=== PATIENT | male | born 1990 | race Caucasian/White ===

== ENCOUNTER 2017-01-16 00:18 | Emergency (ER) | payer SELFPAY ==
[~2017-01-16] VITALS: Ht 190.5 cm; Wt 110.0 kg
[~2017-01-16 00:18] MED LIST: PENI500T PO
[2017-01-16 00:21] VITALS: BP 113/64; PULSE 127; RESP 20; TEMP 100.1; O2SAT 94
--- NOTE | 2017-01-16 00:59 | PD ---
HPI Chief Complaint: Alcohol/Drug Intoxication Time Seen by Provider: 00:58 Travel History International Travel<30 days: No Contact w/Intl Traveler<30days: No Traveled to known affect area: No History of Present Illness HPI 26-year-old male was brought into the emergency room by his friends for shooting Dilaudid and then having a seizure-like activity. As per the friends he has not used for 6 months and this was a first-time again. Patient was quite somnolent but able to answer some questions with slurred speech. Vital signs had temperature of 100.1 and tachycardia. However as I was seeing him on the monitor his heart rate was in the low 100s and repeat oral temperature was 99.5. Patient was not a reliable historian and the friends could not tell more than this. [facility] Past Medical History Narrative Medical List of his past medical, surgical, social and family history is reviewed from the nursing note. Cancer: No Cardiovascular Problems: No Diabetes: No Diminished Hearing: No Gastrointestinal Disorders: No Genitourinary: No Hepatitis: No Hiatal Hernia: No Hypertension: No Musculoskeletal: Yes (CHRONIC HAND PAIN AFTER HAVING SURGERY) Psychiatric: No Respiratory: No Immunizations Current: Yes Thyroid Disease: No PNEUMOCCOCAL Vaccine (Year): 2 Past Surgical History Other Surgery: Yes (ORIF right hand) Social History Alcohol Use: Yes (OCCASIONALLY) Tobacco Use: Yes (1 PPD) Substance Use: Yes (THC) Allergies-Medications (Allergen,Severity, Reaction): Coded Allergies: No Known Allergies (Verified Allergy, Unknown, 01/16/17) Comments No known drug allergies. Reported Meds & Prescriptions Reported Meds & Active Scripts Active Pen-Vee K (Penicillin V Potassium) 500 Mg Tab 500 Mg PO Q6 10 Days Narrative Medication List of his home medications reviewed from the nursing note. Review of Systems ROS Limitations: Altered Mental Status Except as stated in HPI: all other systems reviewed are Neg Physical Exam Exam Limitations: Altered Mental Status Narrative GENERAL: Somnolent, slurred speech SKIN: Focused skin assessment warm/dry. HEAD: Atraumatic. Normocephalic. EYES: Pupils equal and round. No scleral icterus. No injection or drainage. ENT: No nasal bleeding or discharge. Mucous membranes pink and moist. NECK: Trachea midline. No JVD. CARDIOVASCULAR: Regular rate and rhythm. No murmur appreciated. RESPIRATORY: No accessory muscle use. Clear to auscultation. Breath sounds equal bilaterally. GASTROINTESTINAL: Abdomen soft, non-tender, nondistended. Hepatic and splenic margins not palpable. MUSCULOSKELETAL: No obvious deformities. No clubbing. No cyanosis. No edema. NEUROLOGICAL: GCS of 13. No obvious cranial nerve deficits. Motor grossly within normal limits. Slurred speech. PSYCHIATRIC: Appropriate mood and affect; insight and judgment normal. Data Data Last Documented VS Orders Orders Sepsis Workup Initiated (01/16/17 ) Complete Blood Count With Diff (01/16/17 01:05) Comprehensive Metabolic Panel (01/16/17 01:05) Lactic Acid Sepsis Protocol (01/16/17 01:05) Blood Culture (01/16/17 01:05) Chest, Single Ap (01/16/17 01:05) Blood Glucose (01/16/17 01:05) Ecg Monitoring (01/16/17 01:05) Iv Access Insert/Monitor (01/16/17 01:05) Oximetry (01/16/17 01:05) Oxygen Administration (01/16/17 01:05) Sodium Chlor 0.9% 1000 Ml Inj (Ns 1000 M (01/16/17 01:05) Sodium Chlor 0.9% 1000 Ml Inj (Ns 1000 M (01/16/17 01:05) Sodium Chlor 0.9% 1000 Ml Inj (Ns 1000 M (01/16/17 01:05) Sodium Chlor 0.9% 1000 Ml Inj (Ns 1000 M (01/16/17 01:05) Naloxone Inj (Narcan Inj) (01/16/17 02:45) Naloxone Inj (Narcan Inj) (01/16/17 02:45) Ed Discharge Order (01/16/17 02:50) Labs Laboratory Tests Test 01/16/17 01:10 White Blood Count 6.8 TH/MM3 Red Blood Count 4.36 MIL/MM3 Hemoglobin 14.0 GM/DL Hematocrit 40.4 % Mean Corpuscular Volume 92.7 FL Mean Corpuscular Hemoglobin 32.0 PG Mean Corpuscular Hemoglobin Concent 34.6 % Red Cell Distribution Width 12.4 % Platelet Count 212 TH/MM3 Mean Platelet Volume 8.1 FL Neutrophils (%) (Auto) 87.2 % Lymphocytes (%) (Auto) 7.0 % Monocytes (%) (Auto) 4.5 % Eosinophils (%) (Auto) 0.8 % Basophils (%) (Auto) 0.5 % Neutrophils # (Auto) 5.9 TH/MM3 Lymphocytes # (Auto) 0.5 TH/MM3 Monocytes # (Auto) 0.3 TH/MM3 Eosinophils # (Auto) 0.1 TH/MM3 Basophils # (Auto) 0.0 TH/MM3 CBC Comment DIFF FINAL Differential Comment Blood Urea Nitrogen 21 MG/DL Creatinine 1.06 MG/DL Random Glucose 140 MG/DL Total Protein 7.0 GM/DL Albumin 4.0 GM/DL Calcium Level 8.1 MG/DL Alkaline Phosphatase 67 U/L Aspartate Amino Transf (AST/SGOT) 39 U/L Alanine Aminotransferase (ALT/SGPT) 51 U/L Total Bilirubin 0.8 MG/DL Sodium Level 138 MEQ/L Potassium Level 3.5 MEQ/L Chloride Level 102 MEQ/L Carbon Dioxide Level 26.2 MEQ/L Anion Gap 10 MEQ/L Estimat Glomerular Filtration Rate 83 ML/MIN Lactic Acid Level 1.7 mmol/L MDM Medical Decision Making Medical Screen Exam Complete: Yes Emergency Medical Condition: Yes Medical Record Reviewed: Yes Differential Diagnosis IV drug abuse, opiate abuse, AMS, sepsis, pneumonia Narrative Course 2:40 AM patient was still very groggy. Blood test results were back and they were within acceptable limits. Chest x-ray was negative. Patient was somewhat dehydrated and he had received 2 L of fluid by now. Patient did not give a urine sample and refused to be catheterized. At this point I decided to give him Narcan to reverse his opiate effect. Patient ended up receiving 4 mg of Narcan IV. This woke him up significantly where he was able to have a conversation. Told me that he crushed 8 mg pill off Dilaudid and shot it. He had been clean for 6 months. He told the name of his friend who brought him in so that they can be called to take him home. My opinion patient's presentation is all from opiate overdose. Being clean for 6 months and then using a heavy dose of Narcan made him respiratory and cardiovascular depressed. I'm comfortable discharging him home at this point. Procedures EKG Prior to Arrival: No Diagnosis Primary Impression: IV drug abuse Additional Impression: Dehydration Additional Instructions: Illicit drugs are harmful for health. Please check in to [facility] if you have addiction issues. Med/Other Pt SpecificInfo: No Change to Meds Disposition: 01 DISCHARGE HOME Condition: Stable Fred Pizarro MD Jan 16, 2017 00:59
[2017-01-16] MEDS ORDERED: SODIUM CHLOR 0.9% 1000 ML INJ 1,000 ML IV ONE ×3 (01:05)
[2017-01-16] MEDS ORDERED: SODIUM CHLOR 0.9% 1000 ML INJ 300 ML IV ONE (01:05)
[2017-01-16 01:28] LABS: AUTOMATED NEUTROPHIL # 5.9 TH/MM3 (1.8-7.7); BASOPHIL % 0.5 % (0.0-2.0); EOSINOPHIL # 0.1 TH/MM3 (0-0.4); EOSINOPHIL % 0.8 % (0.0-4.0); HEMATOCRIT 40.4 % (39.0-51.0); HEMO FLAGS DIFF FINAL; LYMPHOCYTE # 0.5 TH/MM3 (1.0-4.8); MEAN CELL VOLUME 92.7 FL (80.0-100.0); MEAN CORPUSCULAR HGB CONC 34.6 % (32.0-36.0); MONO % 4.5 % (0.0-8.0); NEUT % 87.2 % (16.0-70.0); PLATELET COUNT 212 TH/MM3 (150-450); RED BLOOD COUNT 4.36 MIL/MM3 (4.50-5.90); RED CELL DISTRIBUTION WIDTH 12.4 % (11.6-17.2); WHITE BLOOD COUNT 6.8 TH/MM3 (4.0-11.0)
--- NOTE | 2017-01-16 01:31 | RADRPT ---
EXAM DATE/TIME: 01/16/2017 01:17 [facility] COMPARISON: No previous studies available for comparison. INDICATIONS : Vomiting, short of breath. MEDICAL HISTORY : None. SURGICAL HISTORY : None. ENCOUNTER: Initial ACUITY: 1 day PAIN SCORE: 0/10 LOCATION: Bilateral chest FINDINGS: A single view of the chest demonstrates the lungs to be symmetrically aerated without evidence of mas s, infiltrate or effusion. The cardiomediastinal contours are unremarkable. Osseous structures are intact. CONCLUSION: Normal examination. Nick Wolfe MD on January 16, 2017 at 1:30 Board Certified Radiologist. This report was verified electronically.
[2017-01-16 01:51] LABS: ALKALINE PHOSPHATASE 67 U/L (45-117); TOTAL BILIRUBIN ADULT 0.8 MG/DL (0.2-1.0)
[2017-01-16 02:13] LABS: ALT (GPT) 51 U/L (12-78); ANION GAP 10 MEQ/L (5-15); AST (GOT) 39 U/L (15-37); BICARBONATE 26.2 MEQ/L (21.0-32.0); BLOOD UREA NITROGEN 21 MG/DL (7-18); CHLORIDE 102 MEQ/L (98-107); GLOMERULAR FILTRATION RATE 83 ML/MIN (>89); POTASSIUM 3.5 MEQ/L (3.5-5.1); SODIUM (NA) 138 MEQ/L (136-145)
[2017-01-16 02:45] VITALS: BP 100/60; PULSE 98; RESP 15; TEMP 99; O2SAT 98
[2017-01-16] MEDS ORDERED: NALOXONE HCL 2 MG/2 ML VIAL IV PUSH ONE ×2 (02:45)
[2017-01-16 03:10] VITALS: BP 100/60; PULSE 86; RESP 16; O2SAT 98
== END 2017-01-16 03:30 | disposition home or self-care (01) ==
LOC: NEPC 00:18
DX: F19.10 Other psychoactive substance abuse, uncomplicated (principal); E86.0 Dehydration; F17.200 Nicotine dependence, unspecified, uncomplicated
CPT/HCPCS: 71010; 80053; 83605; 85025; 87040; 96361; 96374; 99284; J2310; J7030

== ENCOUNTER 2017-02-13 11:07 | Emergency (ER) | payer SELFPAY ==
[2017-02-13 11:11] VITALS: BP 123/76; PULSE 90; RESP 16; TEMP 97.4; O2SAT 98
[2017-02-13] MEDS ORDERED: SODIUM CHLOR 0.9% 1000 ML INJ 1,000 ML IV SCH (11:19)
[2017-02-13 11:30] VITALS: O2SAT 94
[2017-02-13] MEDS ORDERED: SODIUM CHLORIDE 0.9% FLUSH 10 ML FLUSH IV FLUSH PRN (11:30)
[2017-02-13 11:31] LABS: BASOPHIL % 0.5 % (0.0-2.0); EOSINOPHIL # 0.1 TH/MM3 (0-0.4); EOSINOPHIL % 3.7 % (0.0-4.0); HEMATOCRIT 39.7 % (39.0-51.0); HEMO FLAGS DIFF FINAL; LYMPH % 13.8 % (9.0-44.0); LYMPHOCYTE # 0.5 TH/MM3 (1.0-4.8); MEAN CELL VOLUME 92.8 FL (80.0-100.0); MEAN CORPUSCULAR HEMOGLOBIN 31.5 PG (27.0-34.0); MEAN CORPUSCULAR HGB CONC 33.9 % (32.0-36.0); MONO % 5.5 % (0.0-8.0); NEUT % 76.5 % (16.0-70.0); PLATELET COUNT 212 TH/MM3 (150-450); RED BLOOD COUNT 4.28 MIL/MM3 (4.50-5.90); RED CELL DISTRIBUTION WIDTH 12.4 % (11.6-17.2)
--- NOTE | 2017-02-13 11:34 | PD ---
HPI Chief Complaint: Altered Mental Status Time Seen by Provider: 11:17 Travel History International Travel<30 days: No Contact w/Intl Traveler<30days: No Traveled to known affect area: No History of Present Illness HPI The patient is a 26-year-old male who presents to the emergency department via EMS after he was found unconscious and unresponsive at [facility]. The patient does have a history of IV drug abuse and is currently taking Suboxone. The patient remembers going to [facility] to get cheeseburgers, however, does not remember how he got to the floor. He does complain of a mild headache. He states he may have a history of remote seizures but does not currently take any antibiotics. He states he does not think he took his Suboxone this morning and denies any illicit drug use today. He denies any chest pain, shortness breath, nausea, vomiting, or abdominal pain. He is a somewhat limited and reluctant historian. PFSH Past Medical History Cancer: No Cardiovascular Problems: No Diabetes: No Diminished Hearing: No Gastrointestinal Disorders: No Genitourinary: No Hepatitis: No Hiatal Hernia: No Hypertension: No Musculoskeletal: Yes (CHRONIC HAND PAIN AFTER HAVING SURGERY) Psychiatric: No Respiratory: No Immunizations Current: Yes Thyroid Disease: No PNEUMOCCOCAL Vaccine (Year): 2 Past Surgical History Other Surgery: Yes (ORIF right hand) Social History Alcohol Use: Yes (OCCASIONALLY) Tobacco Use: Yes (1 PPD) Substance Use: Yes (PT UNSURE WHEN LAST USED) Allergies-Medications (Allergen,Severity, Reaction): Coded Allergies: No Known Allergies (Verified Allergy, Unknown, 02/13/17) Reported Meds & Prescriptions Reported Meds & Active Scripts Active Pen-Vee K (Penicillin V Potassium) 500 Mg Tab 500 Mg PO Q6 10 Days Review of Systems Except as stated in HPI: all other systems reviewed are Neg General / Constitutional: No: Fever Eyes: No: Blurred Vision, Visual changes HENT: Positive: Headaches, No: Neck Pain Cardiovascular: No: Chest Pain or Discomfort, Palpitations, Tachycardia, Diaphoresis Respiratory: No: Shortness of Breath Gastrointestinal: No: Nausea, Vomiting, Abdominal Pain Musculoskeletal: No: Weakness Neurologic: Positive: Change in Mentation, Seizures (possible history of seizures) Psychiatric: Positive: Substance Abuse (history of IV drug abuse) Physical Exam Narrative GENERAL: Awake, alert, 26-year-old male appears his stated age and is in no acute respiratory distress. SKIN: Focused skin assessment warm/dry. HEAD: Atraumatic. Normocephalic. EYES: Pupils equal and round. Pupils are 4 mm bilateral and reactive. Slight disconjugate gaze a left eye laterally. ENT: No nasal bleeding or discharge. Mucous membranes pink and moist. NECK: Trachea midline. No JVD. CARDIOVASCULAR: Regular rate and rhythm. No murmur appreciated. RESPIRATORY: No accessory muscle use. Clear to auscultation. Breath sounds equal bilaterally. GASTROINTESTINAL: Abdomen soft, non-tender, nondistended. MUSCULOSKELETAL: No obvious deformities. No clubbing. No cyanosis. No edema. NEUROLOGICAL: Awake and alert. No obvious cranial nerve deficits. Motor grossly within normal limits. Normal speech. Nonfocal. Oriented to person and [facility] but did not know the current month or year. PSYCHIATRIC: Appropriate mood and affect; insight and judgment normal. Data Data Last Documented VS Vital Signs Date Time Temp Pulse Resp B/P (MAP) Pulse Ox O2 Delivery O2 Flow Rate FiO2 02/13/17 11:30 94 Room Air 02/13/17 11:11 97.4 90 16 123/76 (92) Orders Orders Electrocardiogram (02/13/17 11:19) Complete Blood Count With Diff (02/13/17 11:19) Comprehensive Metabolic Panel (02/13/17 11:19) Creatine Kinase (Cpk) (02/13/17 11:19) Ct Brain W/O Iv Contrast(Rout) (02/13/17 11:19) Blood Glucose (02/13/17 11:19) Ecg Monitoring (02/13/17 11:19) Iv Access Insert/Monitor (02/13/17 11:19) Oximetry (02/13/17 11:19) Sodium Chloride 0.9% Flush (Ns Flush) (02/13/17 11:30) Sodium Chlor 0.9% 1000 Ml Inj (Ns 1000 M (02/13/17 11:19) Alcohol (Ethanol) (02/13/17 11:19) Lactic Acid (02/13/17 11:19) Drug Screen, Random Urine (02/13/17 13:19) Ed Discharge Order (02/13/17 13:44) Labs Laboratory Tests Test 02/13/17 11:22 White Blood Count 4.0 TH/MM3 Red Blood Count 4.28 MIL/MM3 Hemoglobin 13.5 GM/DL Hematocrit 39.7 % Mean Corpuscular Volume 92.8 FL Mean Corpuscular Hemoglobin 31.5 PG Mean Corpuscular Hemoglobin Concent 33.9 % Red Cell Distribution Width 12.4 % Platelet Count 212 TH/MM3 Mean Platelet Volume 7.6 FL Neutrophils (%) (Auto) 76.5 % Lymphocytes (%) (Auto) 13.8 % Monocytes (%) (Auto) 5.5 % Eosinophils (%) (Auto) 3.7 % Basophils (%) (Auto) 0.5 % Neutrophils # (Auto) 3.0 TH/MM3 Lymphocytes # (Auto) 0.5 TH/MM3 Monocytes # (Auto) 0.2 TH/MM3 Eosinophils # (Auto) 0.1 TH/MM3 Basophils # (Auto) 0.0 TH/MM3 CBC Comment DIFF FINAL Differential Comment Blood Urea Nitrogen 18 MG/DL Creatinine 1.01 MG/DL Random Glucose 238 MG/DL Total Protein 7.1 GM/DL Albumin 3.8 GM/DL Calcium Level 8.3 MG/DL Alkaline Phosphatase 60 U/L Aspartate Amino Transf (AST/SGOT) 27 U/L Alanine Aminotransferase (ALT/SGPT) 35 U/L Total Bilirubin 0.4 MG/DL Sodium Level 136 MEQ/L Potassium Level 3.7 MEQ/L Chloride Level 103 MEQ/L Carbon Dioxide Level 25.6 MEQ/L Anion Gap 7 MEQ/L Estimat Glomerular Filtration Rate 88 ML/MIN Lactic Acid Level 1.3 mmol/L Total Creatine Kinase 296 U/L Ethyl Alcohol Level LESS THAN 3 MG/DL MDM Medical Decision Making Medical Screen Exam Complete: Yes Emergency Medical Condition: Yes Medical Record Reviewed: Yes Interpretation(s) EKG reveals normal sinus rhythm with a rate of 69. Inverted T-wave noted in lead 3. Last Impressions Head CT 02/13/17 1119 Signed Impressions: Service Date/Time: Monday, February 13, 2017 11:25 - CONCLUSION: Normal examination. Rosendo Moreno MD Laboratory Tests Test 02/13/17 11:22 White Blood Count 4.0 TH/MM3 Red Blood Count 4.28 MIL/MM3 Hemoglobin 13.5 GM/DL Hematocrit 39.7 % Mean Corpuscular Volume 92.8 FL Mean Corpuscular Hemoglobin 31.5 PG Mean Corpuscular Hemoglobin Concent 33.9 % Red Cell Distribution Width 12.4 % Platelet Count 212 TH/MM3 Mean Platelet Volume 7.6 FL Neutrophils (%) (Auto) 76.5 % Lymphocytes (%) (Auto) 13.8 % Monocytes (%) (Auto) 5.5 % Eosinophils (%) (Auto) 3.7 % Basophils (%) (Auto) 0.5 % Neutrophils # (Auto) 3.0 TH/MM3 Lymphocytes # (Auto) 0.5 TH/MM3 Monocytes # (Auto) 0.2 TH/MM3 Eosinophils # (Auto) 0.1 TH/MM3 Basophils # (Auto) 0.0 TH/MM3 CBC Comment DIFF FINAL Differential Comment Blood Urea Nitrogen 18 MG/DL Creatinine 1.01 MG/DL Random Glucose 238 MG/DL Total Protein 7.1 GM/DL Albumin 3.8 GM/DL Calcium Level 8.3 MG/DL Alkaline Phosphatase 60 U/L Aspartate Amino Transf (AST/SGOT) 27 U/L Alanine Aminotransferase (ALT/SGPT) 35 U/L Total Bilirubin 0.4 MG/DL Sodium Level 136 MEQ/L Potassium Level 3.7 MEQ/L Chloride Level 103 MEQ/L Carbon Dioxide Level 25.6 MEQ/L Anion Gap 7 MEQ/L Estimat Glomerular Filtration Rate 88 ML/MIN Lactic Acid Level 1.3 mmol/L Total Creatine Kinase 296 U/L Ethyl Alcohol Level LESS THAN 3 MG/DL Differential Diagnosis Differential diagnosis includes drug ingestion, illicit drug use, closed head injury, intracranial hemorrhage, hyponatremia, seizure with postictal state. Narrative Course IV was established, labs are drawn and sent, and the patient was placed on cardiac telemetry monitoring and continuous pulse oximetry monitoring. Noncontrast CT the brain was obtained. The patient was administered 1 L of IV fluids. CT the brain was negative. Glucose was slightly elevated, however, sodium was normal. Lactic acid was unremarkable, doubt seizure. The patient was monitored in the emergency department. The patient was reevaluated at 1:40 PM. The patient is now awake, alert, oriented 5. Telemetry monitoring did not reveal any arrhythmias. The patient would prefer to go home and follow-up as an outpatient. Diagnosis Primary Impression: Altered mental status Qualified Codes: R40.4 - Transient alteration of awareness Patient Instructions: General Instructions Additional Instructions: Please provide a patient a copy of his CT results and lab results at discharge. Follow-up with your primary physician. Return if symptoms worsen or progress. Disposition: 01 DISCHARGE HOME Condition: Stable Kale Quiroz MD Feb 13, 2017 11:34
--- NOTE | 2017-02-13 11:46 | RADRPT ---
EXAM DATE/TIME: 02/13/2017 11:25 [facility] COMPARISON: No previous studies available for comparison. INDICATIONS : AMS. RADIATION DOSE: 69.22 CTDIvol (mGy) MEDICAL HISTORY : None SURGICAL HISTORY : None. ENCOUNTER: Initial ACUITY: 1 day PAIN SCALE: 2/10 LOCATION: Bilateral cranial TECHNIQUE: Multiple contiguous axial images were obtained of the head. Using automated exposure control and adj ustment of the mA and/or kV according to patient size, radiation dose was kept as low as reasonably a chievable to obtain optimal diagnostic quality images. DICOM format image data is available electro nically for review and comparison. FINDINGS: CEREBRUM: The ventricles are normal for age. No evidence of midline shift, mass lesion, hemorrhage or acute in farction. No extra-axial fluid collections are seen. POSTERIOR FOSSA: The cerebellum and brainstem are intact. The 4th ventricle is midline. The cerebellopontine angle i s unremarkable. EXTRACRANIAL: The visualized portion of the orbits is intact. SKULL: The calvaria is intact. No evidence of skull fracture. CONCLUSION: Normal examination. Rosendo Moreno MD on February 13, 2017 at 11:43 Board Certified Radiologist. This report was verified electronically.
[2017-02-13 11:51] LABS: ALT (GPT) 35 U/L (12-78); ANION GAP 7 MEQ/L (5-15); AST (GOT) 27 U/L (15-37); BICARBONATE 25.6 MEQ/L (21.0-32.0); BLOOD UREA NITROGEN 18 MG/DL (7-18); CHLORIDE 103 MEQ/L (98-107); GLOMERULAR FILTRATION RATE 88 ML/MIN (>89); POTASSIUM 3.7 MEQ/L (3.5-5.1); SODIUM (NA) 136 MEQ/L (136-145)
[2017-02-13 11:52] LABS: TOTAL BILIRUBIN ADULT 0.4 MG/DL (0.2-1.0)
[2017-02-13 11:53] LABS: ALKALINE PHOSPHATASE 60 U/L (45-117); CREATINE KINASE 296 U/L (39-308)
[2017-02-13 11:54] LABS: ALCOHOL LESS THAN 3 MG/DL (0-5)
[2017-02-13 14:05] VITALS: BP 112/66
[2017-02-13] MEDS ORDERED: ONDANSETRON ODT 4 MG TAB PO ONE (14:15)
--- NOTE | 2017-02-13 14:41 | EKG ---
Date Performed: 02/13/2017 Time Performed: 11:43:46 PTAGE: 26 years EKG: Sinus rhythm NORMAL ECG NO PREVIOUS TRACING DOCTOR: Nick Montano Interpretating Date/Time 02/13/2017 14:41:00
== END 2017-02-13 14:07 | disposition home or self-care (01) ==
LOC: NEPC 11:07
DX: R41.82 Altered mental status, unspecified (principal); R51 Headache; F15.11 Other stimulant abuse, in remission; F17.200 Nicotine dependence, unspecified, uncomplicated
CPT/HCPCS: 70450; 80053; 80307; 82550; 83605; 85025; 93005; 96360; 99285; J7030

== ENCOUNTER 2017-02-15 20:06 | Emergency (ER) | payer OTHER ==
[~2017-02-15] VITALS: Ht 188 cm; Wt 114.0 kg
[2017-02-15 20:13] VITALS: BP 139/87; PULSE 83; RESP 24; TEMP 97.8; O2SAT 99
[2017-02-15] MEDS ORDERED: SODIUM CHLORIDE 0.9% FLUSH 10 ML FLUSH IVF PRN (20:15)
[2017-02-15] MEDS ORDERED: DIPHTH/TETANUS/ACEL PERTUSSIS (BOOSTER) 0.5 ML VIAL/PFS IM ONE (20:18)
[2017-02-15] MEDS ORDERED: ceFAZolin 2 GM PREMIX 50 ML ONE (20:18)
[2017-02-15] MEDS ORDERED: ceFAZolin 2 GM PREMIX 50 ML IV ONE (20:30)
[2017-02-15] MEDS ORDERED: TETANUS/DIPHTHERIA TOXOID ADULT 0.5 ML VIAL IM ONE (20:30)
[2017-02-15] MEDS ORDERED: SODIUM CHLOR 0.9% 1000 ML INJ 1,000 ML IV ONE (20:30)
[2017-02-15] MEDS ORDERED: MORPHINE SULFATE 4 MG/ML INJ IV PUSH ONE (20:30)
[2017-02-15 20:33] LABS: AUTOMATED NEUTROPHIL # 4.8 TH/MM3 (1.8-7.7); BASOPHIL # 0.1 TH/MM3 (0-0.2); EOSINOPHIL # 0.2 TH/MM3 (0-0.4); EOSINOPHIL % 3.2 % (0.0-4.0); HEMATOCRIT 39.7 % (39.0-51.0); HEMOGLOBIN 13.6 GM/DL (13.0-17.0); LYMPH % 16.8 % (9.0-44.0); LYMPHOCYTE # 1.1 TH/MM3 (1.0-4.8); MEAN CELL VOLUME 92.2 FL (80.0-100.0); MEAN CORPUSCULAR HEMOGLOBIN 31.5 PG (27.0-34.0); MEAN CORPUSCULAR HGB CONC 34.2 % (32.0-36.0); MEAN PLATELET VOLUME 7.6 FL (7.0-11.0); MONO % 6.7 % (0.0-8.0); MONOCYTE # 0.4 TH/MM3 (0-0.9); NEUT % 72.3 % (16.0-70.0); PLATELET COUNT 237 TH/MM3 (150-450); RED BLOOD COUNT 4.31 MIL/MM3 (4.50-5.90); WHITE BLOOD COUNT 6.6 TH/MM3 (4.0-11.0)
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
[2017-02-15 20:45] LABS: PROTHROMBIN TIME - PATIENT 10.4 SEC (9.8-11.6)
[2017-02-15] MEDS ORDERED: IOHEXOL 350 MG/ML 10 ML VIAL (for RAD DIAG) IVCONTRAST ONE (20:47)
[2017-02-15 20:55] LABS: BICARBONATE 26.2 MEQ/L (21.0-32.0); CALCIUM 9.1 MG/DL (8.5-10.1); CREATININE 0.91 MG/DL (0.60-1.30)
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
--- NOTE | 2017-02-15 21:37 | RADRPT ---
EXAM DATE/TIME: 02/15/2017 20:58 [facility] COMPARISON: No previous studies available for comparison. INDICATIONS : Patient complains of left hand pain status post LONG-TERM. MEDICAL HISTORY : None. SURGICAL HISTORY : None. ENCOUNTER: Initial ACUITY: 1 day PAIN SCORE: 6/10 LOCATION: Left Hand FINDINGS: There is a fracture of the ulna styloid and intra-articular relatively nondisplaced fracture of the d istal radius. No dislocation. No acute fracture identified within the hand. Previous screw fixation f ifth metacarpal. CONCLUSION: 1. Fracture of ulnar styloid and intra-articular fracture of the distal radius, relatively nondisplac ed. No dislocation. Alessandro Martinez MD on February 15, 2017 at 21:33 Board Certified Radiologist. This report was verified electronically.
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
[2017-02-15 22:31] VITALS: BP 132/79; PULSE 75; RESP 20; O2SAT 97
[2017-02-15] MEDS ORDERED: LIDOCAINE 2%/EPINEPHrine 1:100,000 20ML MDV NERV BLOCK ONE (22:45)
[2017-02-15] MEDS ORDERED: HYDROmorphone HCL PF 2 MG/ML VIAL IV PUSH ONE (23:00)
[2017-02-16] MEDS ORDERED: oxyCODONE/ACETAMINOPHEN 5 MG/325 MG TAB PO ONE (00:15)
[2017-02-16 00:36] VITALS: BP 124/84; PULSE 69; RESP 18; O2SAT 98
[2017-02-16] MEDS ORDERED: IBUP1TAB7 PO (01:58)
[2017-02-16] MEDS ORDERED: CEPH-460 PO (01:58)
[2017-02-16] MEDS ORDERED: NORC5TAB PO (01:58)
== END 2017-02-16 02:24 | disposition home or self-care (01) ==
LOC: NEPE 20:06
DX: S81.011A Laceration without foreign body, right knee, initial encounter (principal); S52.612A Displaced fracture of left ulna styloid process, initial encounter for closed fracture; S52.572A Other intraarticular fracture of lower end of left radius, initial encounter for closed fracture; R07.9 Chest pain, unspecified; R10.9 Unspecified abdominal pain; F17.200 Nicotine dependence, unspecified, uncomplicated; V23.4XXA Motorcycle driver injured in collision with car, pick-up truck or van in traffic accident, initial encounter; Z79.899 Other long term (current) drug therapy; Z23 Encounter for immunization
CPT/HCPCS: 12002; 70450; 70486; 71260; 72125; 73080; 73130; 73564; 73610; 74177; 80048; 85025; 85610; 85730; 86850; 86900; 86901; 90471; 90714; 90715; 96361; 96365; 96375; 99291; J0690; J1170; J2270; J3010; J7030; Q9967